=== PATIENT | female | born 1955 | race Caucasian/White ===

== ENCOUNTER → 2019-06-07 | Day surgery (SDC) | payer BC ==
--- NOTE | 2019-05-21 06:43 | HP ---
CC: Dr. Nabil Sandy; Dr. Hamlet Nielsen * ADMISSION HISTORY AND PHYSICAL: DATE OF ADMISSION: 06/07/19 ATTENDING SURGEON: Dr. Franchesca Manuel * (GISELLE Yang, dictating) CHIEF COMPLAINT: Right breast mass. HISTORY OF PRESENT ILLNESS: This is a 63-year-old female with mixed family history of cancers, who underwent routine annual screening mammography on . This was performed at [facility]. There were noted to be bilateral breast masses, new in comparison from prior mammograms (most recent prior mammogram had been done at another institution). An ultrasound was done soon thereafter confirming the presence of bilateral breast lesions, one appearing hypoechoic and possibly cystic in the left breast at the 3 o'clock position and then a lesion at the 9 o'clock position of the right breast. Biopsy was recommended. It was performed under ultrasound guidance on 01/28/19 with pathology having been read at [facility]. The left lesion was indeed a cyst clinically and no pathology was submitted. The right breast lesion was described as showing apocrine metaplasia with fibrocystic changes. The patient was in the habit of doing regular breast self exams and had not noticed any changes in either breast even subsequent to the imaging findings. Her menstrual history is outlined in the chart record. She has not had any prior breast biopsies. She denies nipple changes or discharge. She did report having some bruising post biopsy on the right. A biopsy clip was left in place by her history. Her family history is notable for her mother having at age 42 from ovarian cancer, both maternal and paternal grandmothers with history of colon cancer, and a maternal cousin with both uterine and breast cancer. The same cousin did undergo genetic testing, which was apparently negative. There is also family history of leukemia and testicular cancer in one of her brothers. She was seen by Dr. Manuel initially in January 2019 and then subsequently again in March 2019 and April 2019. There was noted in January 2019 to be post biopsy changes at the 9 o'clock position most consistent with hematoma. This was in the lateral aspect of the right breast. There seem to be separate area of more dense knobby tissue in the upper outer quadrant and likewise in the left breast , though more prominent in the right. Dr. Manuel recommended follow up exams and these were performed on 04/10/19 and 05/09/19. The most recent exam confirmed the ongoing presence of palpable density in the right breast upper outer quadrant. There were no other dominant lesions in either breast and no axillary, cervical, or supraclavicular lymphadenopathy. Dr. Manuel has discussed with her the options including ongoing surveillance versus repeat biopsy versus excision. The patient understands these indications, risks, benefits, and alternatives and would like to proceed as scheduled with excision of right breast lump. In addition, an MRI was done on 04/22/19 showing some nodular parenchymal disease of low suspicion in both breasts. There were no changes or concerns in the area of palpable abnormality in the right breast. PAST MEDICAL HISTORY: 1. Hypertension. 2. Obesity. 3. Osteoporosis. 4. Allergies. 5. Asthma. PAST SURGICAL HISTORY: Include: 1. ELIZABETH with BSO in 1983 for benign disease. She had been on hormone replacement therapy since that time, though in recent years tapered it down to 2 days per week. 2. x2. 3. Tubal ligation. 4. Right thyroid lobectomy with apparent incidental left parathyroidectomy for benign disease. 5. Left shoulder surgery and excision of large basal cell carcinoma of the scalp. CURRENT MEDICATIONS: 1. Aspirin 81 mg once daily (the patient will hold after her 05/31/19 dose). 2. Claritin 10 mg once daily. 3. Losartan 50 mg once daily. 4. Hydrochlorothiazide 25 mg once daily. 5. Montelukast 10 mg once daily. 6. Alendronate 70 mg once weekly. 7. Famotidine 20 mg once daily. 8. Prempro 0.625/2.5 mg every Monday and Monday. 9. She also takes vitamin E and vitamin D supplements. DRUG ALLERGIES: PENICILLIN (hives and rash), KEFLEX (hives and rash), ERYTHROMYCIN and AZITHROMYCIN (GI side effects), NASONEX (facial swelling and flushing), SULFA (GI side effects and rash) and IV CONTRAST DYE (nausea). FAMILY HISTORY: As noted above, there is no known family history of anesthesia problems, bleeding or clotting disorder. SOCIAL HISTORY: The patient is . They have three grandchildren living with them. She is not currently working outside of the home. She denies use of tobacco, alcohol, or recreational drugs. REVIEW OF SYSTEMS: General: No recent constitutional symptoms or acute illnesses other than described in the HPI. Her weight has been stable. Dermatological: She is followed by a technician biological health annually. HEENT: No problems reported. She has a couple of permanent bridges. No recent visual changes. Cardiovascular: She has a history of mitral valve prolapse for which she has used antibiotic prophylaxis for dental procedures in the distant past, but not more recently. She has a history of hypertension, no recent chest pain , or palpitations. Respiratory: No recent exacerbations of her asthma. She does have an albuterol MDI for p.r.n. use, but has not required in the past year or more. GI: No problems reported. She has never had a screening colonoscopy, though has had annual stool guaiacs checked which have all been negative. She will discuss colonoscopy with her primary care provider. : No problems reported. DIVERSITY INTERN: No additions to above. Status post hysterectomy for benign disease. Endocrine: No diabetes or thyroid dysfunction. She has remained euthyroid after her right thyroid lobectomy. PHYSICAL EXAMINATION GENERAL: Well-nourished, obese female, in no acute distress. VITAL SIGNS: Height 5 feet 2 inches, weight 200 pounds. Blood pressure 124/88 , pulse 72, respirations 16, temperature 97. HEENT: Pupils are equal, round, reactive. EOMs intact. No conjunctival pallor. Oropharynx: Teeth in good repair. No intraoral lesions. Mucous membranes are moist. NECK: Well-healed prior thyroid surgical scar. No palpable masses or thyromegaly. No palpable lymphadenopathy. LUNGS: Clear to auscultation. No rales or wheezes. HEART: Regular rate and rhythm. No murmur appreciated. BREASTS: As noted above in the HPI per Dr. Manuel's exam. On today's exam, there is somewhat discrete area of density in the 10 to 11 o'clock position in the right breast. I was unable to palpate a separate density at the 9 o'clock position. I was also unable to appreciate any defined density in the left breast. No skin or nipple changes. ABDOMEN: Soft and nontender to palpation. No palpable masses or organomegaly. GENITALIA: Not done. RECTAL: Not done. BACK: No spinous process or CVA tenderness. EXTREMITIES: No edema. NEUROLOGICAL: Grossly intact. SKIN: Warm and dry. No suspicious rashes or lesions noted, though a complete skin exam was not performed. IMPRESSION: Right breast mass. PLAN: Excision of right breast mass. GISELLE YANG [id number]/[facility] #: [id number] [facility]
[~2019-06-07] MED LIST: Acetaminophen TAB* 325 MG ONE; Acetaminophen TAB* 325 MG PO ONE; Buffered Lidocaine 1% SYRIN* 1 ML/SYRINGE INTRADERM ONE; Bupivacaine 0.5% W/EPI SDV* 10 ML VIAL INJ ONE; Bupivacaine 0.5%* 50 ML MDV VIAL ONE; Clindamycin 900 MG/D5W BAG(*) 900 MG/50 ML BAG IVPB ONE; Dexamethasone IV* 4 MG/ML 1 ML (4 MG) ONE; Famotidine IV* 10 MG/ML 2 ML (20 mg) IV ONE; Famotidine IV* 10 MG/ML 2 ML (20 mg) ONE; Gabapentin CAP(*) 300 MG ONE; Gabapentin CAP(*) 300 MG PO ONE; HYDROcodone/ACETAMIN 5-325 MG* 1 TAB PO PRN; KETAMINE HCL* 50 MG/ML 10 ML VIAL ONE; Ketorolac INJ* 30 MG/ML 1 ML VIAL ONE; Lactated Ringers 1000 ML Bag* 1,000 ML IV SCH; Levalbuterol 0.63MG/3ML NEB* UNIT OF USE INH PRN; Lidocaine 1% INJ* 10 MG/ML 30 ML SDV ONE; Lidocaine 2% PF * 5 ML VIAL ONE; Midazolam* 1 MG/ML 2 ML VIAL (2 MG) ONE; Naloxone* 0.4 MG/ML 1 ML VIAL IV PRN; Ondansetron INJ* 2 MG/ML VIAL IV PRN; PROCHLORPERAZINE INJ 5 MG/ML 2 ML VIAL IV PRN; Propofol* 10 MG/ML 20 ML BTL ONE; diPHENhydraMINE IV* 50 MG/ML 1 ml VIAL (BENADRYL) IV PRN; fentaNYL* 50 MCG/ML 2 ML VIAL (100 MCG VIAL) IV PRN; fentaNYL* 50 MCG/ML 2 ML VIAL (100 MCG VIAL) ONE
--- NOTE | 2019-06-07 08:55 | BRIEFOPN ---
Brief Operative/Procedure Note - Operation Details Pre-Op Diagnosis: Right breast mass Post-Op Diagnosis: same Procedures: Excision of right breast mass Surgeon(s)/Proceduralists: Foster Anesthesia: local-MAC Estimated Blood Loss: 5 cc Findings: Breast tissue Specimen(s)/Culture(s) Description: 1. Right breast mass. 2. Additional tissue lateral to first specimen Complications: none
[2019-06-07 09:54] VITALS: BP 149/89
--- NOTE | 2019-06-07 13:42 | OP ---
CC: Dr. Nabil Sandy * DATE OF OPERATION: 06/07/19 - SDS DATE OF : 59 SURGEON: Franchesca Manuel MD VENEREAL DISEASE INVESTIGATOR: There was no rehabilitation assistant for this case. PRE-OP DIAGNOSIS: Right breast mass. POST-OP DIAGNOSIS: Right breast mass. OPERATIVE PROCEDURE: Excision of right breast mass. INDICATIONS: Ms. Mas is a 63-year-old woman who had a mass identified in the right breast prompting the plan for surgical excision. DESCRIPTION OF PROCEDURE: She was brought to the operating room, placed on the OR table in supine position, and given an IV sedation. The right breast was prepped and draped in the usual sterile fashion. After infiltrated with local anesthetic, a curvilinear incision was made and subcutaneous tissue was divided with electrocautery down to the level of the mass. The tissue there was grasped and excised using electrocautery. Once it was out of the breast, it was marked in the usual fashion and handed off as a specimen. Hemostasis was then assured with a combination of electrocautery and suture ligature. In the process of obtaining hemostasis, it became apparent that there was a small tongue of additional tissue lateral to the initial specimen which was tethered by very little attachment, so it was also excised and handed off as a specimen to go with the first specimen. Once hemostasis was adequate, additional local was instilled into the wound and closure was accomplished. This was done with 3 -0 Vicryl in the subcutaneous layer and the skin was closed with 4-0 Prolene in a subcuticular fashion. Due to her reaction to tape adhesive, gel adhesive was applied along with a sterile gauze. She tolerated the procedure well and was transferred to recovery in a stable condition. [id number]/[facility] #: [id number] [facility]
== END | disposition home or self-care (01) ==
LOC: OR 05:34
PROVIDERS: ATTEND Surgery
DX: N63.11 Unspecified lump in the right breast, upper outer quadrant (principal); I10 Essential (primary) hypertension; E66.01 Morbid (severe) obesity due to excess calories; M81.0 Age-related osteoporosis without current pathological fracture; K21.9 Gastro-esophageal reflux disease without esophagitis; J45.909 Unspecified asthma, uncomplicated
CPT/HCPCS: 88307; A9270-GY; J1100; J1885; J2250; J2704; J3010; J3490